=== PATIENT | male | born 1965 ===

== ENCOUNTER 2020-04-16 15:03 | Emergency (ER) | payer MEDICAID ==
--- NOTE | 2020-04-16 15:10 | NUR ---
MANAGER PRICING: NOT IN LOBBY
--- NOTE | 2020-04-16 15:26 | NUR ---
CHARLIE RN: NOT IN LOBBY
--- NOTE | 2020-04-16 16:08 | NUR ---
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
== END 2020-04-16 16:48 | disposition left against medical advice (07) ==
LOC: ED 16:10
DX: Z53.21 Procedure and treatment not carried out due to patient leaving prior to being seen by health care provider (principal)

== ENCOUNTER 2020-04-17 07:23 | Emergency (ER) | payer MEDICAID ==
[~2020-04-17] VITALS: Ht 170.2 cm; Wt 61.7 kg
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
== END 2020-04-17 08:02 | disposition left against medical advice (07) ==
LOC: ED 07:56
DX: Z53.21 Procedure and treatment not carried out due to patient leaving prior to being seen by health care provider (principal)

== ENCOUNTER 2021-02-28 21:26 | Emergency (ER) | payer MEDICAID ==
[~2021-02-28] VITALS: Ht 170.2 cm; Wt 61.4 kg
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
[2021-02-28] MEDS ORDERED: SODIUM CHLORIDE 0.9% 1,000ML IVBOLUS ONE (22:00)
[2021-02-28 22:01] LABS: BASOPHILS % (AUTO) 1 % (0-1); EOSINOPHILS % (AUTO) 1 % (1-7); LYMPHOCYTES % (AUTO) 31 % (22-44); MEAN CORPUSCULAR HEMOGLOBIN 28.3 pg (27.5-34.5); MEAN CORPUSCULAR HGB CONC 34.2 g/dL (33.2-36.2); MEAN PLATELET VOLUME 9.4 fL (7.4-10.4); MONOCYTES % (AUTO) 7 % (2-9); NEUTROPHILS % (AUTO) 60 % (42-75); PLATELET COUNT 185 x10^3/uL (130-400); RED CELL DISTRIBUTION WIDTH 13.2 % (9.4-14.8)
[2021-02-28 22:07] LABS: ALBUMIN 2.5 g/dL (3.4-5.0); ANION GAP 8 mmol/L (5-15); CALCIUM 8.3 mg/dL (8.5-10.1); CHLORIDE 96 mmol/L (98-107); CREATININE 1.57 mg/dL (0.7-1.3)
[2021-02-28 22:13] LABS: ACETONE, SERUM Trace (Negative)
--- NOTE | 2021-02-28 22:29 | NUR ---
PT ASLEEP IN BED, ALL NEEDS IN REACH, CALL LIGHT IN REACH, NAD AT THIS TIME, VSS
[2021-02-28] MEDS ORDERED: INSULIN REGULAR 100 UNITS/ML, 3ML VIAL SQ-INSULIN SCH (23:00)
[2021-02-28] MEDS ORDERED: INSULIN REGULAR 100 UNITS/ML, 3ML VIAL IVPush ONE (23:00)
[2021-02-28] MEDS ORDERED: INSULIN SINGLE DOSE, ER ONE (23:10)
[2021-02-28] MEDS ORDERED: INSULIN REGULAR 100 UNITS/ML, 3ML VIAL SQ-INSULIN ONE (23:30)
--- NOTE | 2021-02-28 23:32 | NUR ---
PT ASLEEP IN BED, ALL NEEDS IN REACH, CALL LIGHT IN REACH, NAD AT THIS TIME, VSS
[2021-02-28 23:42] VITALS: BP 111/66
--- NOTE | 2021-02-28 23:43 | NUR ---
PT GIVEN SCRIPTS FOR GLUCOMETER, LANCETS, INSULIN AND METFORMIN, PT PROVIDED COMMUNITY RESOURCES, PT A/OX4 UPON DISCHARGE
== END 2021-02-28 23:46 | disposition home or self-care (01) ==
LOC: ED 21:30
DX: E11.65 Type 2 diabetes mellitus with hyperglycemia (principal); F15.10 Other stimulant abuse, uncomplicated; F10.10 Alcohol abuse, uncomplicated; Y90.9 Presence of alcohol in blood, level not specified; Z72.9 Problem related to lifestyle, unspecified; F17.210 Nicotine dependence, cigarettes, uncomplicated
CPT/HCPCS: 36415; 80048; 82010; 82040; 85025; 96360; 99283; 99406; J1815; J7030